=== PATIENT | female | born 1960 | race Caucasian/White ===

== ENCOUNTER 2018-02-07 22:00 | Emergency (ER) | payer OTHER ==
[~2018-02-07] VITALS: Ht 172.7 cm; Wt 104.8 kg
[2018-02-07 22:00] VITALS: TEMP 37.1; Ht 172.7 cm; Wt 104.8 kg
[~2018-02-07 22:00] MED LIST: CEPH500C2 PO; IBUP-1428 PO; OXYC-737 PO; [UNRECOGNIZED DRUG - REMARK] PO
[2018-02-07] MEDS ORDERED: KETOROLAC TROMETHAMINE 30 MG/ML VIAL IV STA (22:26)
[2018-02-07] MEDS ORDERED: DEXAMETHASONE **PF** INJ 10 MG/ML VIAL IV ONE (22:30)
[2018-02-07] MEDS ORDERED: ACETAMINOPHEN IV 100 ML IV ONE (22:30)
[2018-02-07 23:42] VITALS: BP 154/69; PULSE 66; O2SAT 95
[2018-02-07] MEDS ORDERED: PRED20TA2 PO (23:42)
[2018-02-07] MEDS ORDERED: EMPTY 8 DRAM VIAL ONE (23:44)
--- NOTE | 2018-02-08 02:17 | EMERGENCY ROOM VISIT NOTE ---
History First contact with patient: 22:10 Chief Complaint: BACK PAIN Stated Complaint: BACK PAIN, HIP PAIN History of Present Illness The patient is a 57 year old female who presents to the Emergency Room with complaints of low back pain worsening over the past 1 day. The patient does not have injury or trauma to explain her symptoms. She was seen in the emergency department earlier this week for right hip pain, where she was provided pain medication after x-rays were negative. The patient followed with her primary care physician yesterday who evidently did a steroid injection into her trochanteric bursa. The patient states that her hip pain is significantly improved after the injection. She began to develop back pain throughout the course of today. The patient states that she typically walks 2-3 miles a day for work, and was also working her garden today. This seems to have exacerbated her symptoms. She is currently on prescription Advil, Tylenol, and Flexeril for her symptoms. She does not like to take opioids because they make her feel "funny ". The patient has been able to use the bathroom as normal. No fevers or chills. She rates her discomfort a 7/10. Review of Systems More than 10 systems were reviewed and otherwise negative with the exception of history of present illness. Past Medical/Surgical History Surgical Problems: (1) H/O: hysterectomy Family History Cancer Social History Smoking Status: Current Every Day Smoker Alcohol Use: occasionally Marital Status: Housing Status: lives with significant other Occupation Status: employed Current/Historical Medications Scheduled Cephalexin Monohydrate (Keflex), Unknown Dose PO DIRECTED Prednisone (Prednisone Tab), 0 PO DAILY [Unknown Steroid], Unknown Dose PO DAILY Scheduled PRN Ibuprofen (Motrin), 800 MG PO Q8H PRN for Pain Oxycodone Immediate Rel Tab (Roxicodone Ir), 5 MG PO Q6H PRN for Pain Physical Exam Vital Signs Date Time Temp Pulse Resp B/P (MAP) Pulse Ox O2 Delivery O2 Flow Rate FiO2 02/07/18 23:42 66 16 154/69 95 Room Air 02/07/18 23:05 65 16 154/69 97 Room Air 02/07/18 22:00 37.1 66 20 170/71 96 Room Air Physical Exam VITALS: Vitals are noted on the nurse's note and reviewed by myself. Vital signs stable. GENERAL: Well-developed, well-nourished, white female, who is in no acute distress and resting comfortably. Patient is cooperative with the examination. HEART: Regular rate and rhythm without murmurs gallops or rubs. LUNGS: Clear to auscultation bilaterally without wheezes, rales or rhonchi. No retractions or accessory muscle use. ABDOMEN: Positive normal bowel sounds x 4. Soft, nontender, without masses or organomegaly. No guarding or rebound tenderness. BACK: Mild tenderness appreciated along the lower lumbar spine in the L3-L5 distribution as well as the right SI joint. Negative straight leg raise. No saddle paresthesias. MUSCULOSKELETAL: No muscle atrophy, erythema, or edema noted. Full range of motion in all extremities. No tenderness to palpation. Normal gait. Strength 5/5 throughout. NEURO: Patient was alert and oriented to person place and time. CN II through XII grossly intact. No focal neurological deficits. Medical Decision & Procedures Medications Administered Medications (Trade) Dose Ordered Sig/Amado Route Start Time Stop Time Status Last Admin Dose Admin Dexamethasone Sodium Phosphate (Dexamethasone Inj Pf) 10 mg NOW ONCE IV 02/07/18 22:30 02/07/18 22:31 DC 02/07/18 22:31 10 MG Ketorolac Tromethamine (Toradol Inj) 30 mg NOW STAT IV 02/07/18 22:26 02/07/18 22:27 DC 02/07/18 22:31 30 MG Acetaminophen 100 ml @ 400 mls/hr NOW ONCE IV 02/07/18 22:30 02/07/18 22:44 DC 02/07/18 22:34 400 MLS/HR Prednisone (PredniSONE TAB) 60 mg NOW STAT PO 02/07/18 23:40 02/07/18 23:42 DC 02/07/18 23:45 60 MG ED Course Physical exam and history were performed. Nursing notes, EMR, and Medication List were personally reviewed. Patient appears to have low back pain worsening over the past day. She has been having difficulty with her right hip this week, but evidently this is improving. The patient does arrived to the facility via ambulance. IV access was established the patient was medicated with IV Toradol, IV Decadron, and IV Tylenol as she evidently does not do well with opioids. X-rays were obtained and reviewed by myself showing no significant acute process with official radiology read pending at the time of this dictation. The patient was reevaluated multiple times throughout the course of her stay. The patient reports almost complete resolution of her discomfort after IV therapy. I had a lengthy discussion with the patient regarding options of care. Based on her current regimen I feel that she would do well with a tapering dose of prednisone. The patient is concerned she will not be able to make it to her pharmacy tomorrow and I did give her a dose for tomorrow from here. She will be given a prescription for the remaining course of steroid. She is to continue the [id number] analgesics as well as her muscle relaxer. She is to avoid unnecessary physical activity and follow-up with her primary care physician this week for further care management. The chart was completed utilizing [employer] Speech Voice Recognition Software. Grammatical errors, random word insertions, pronoun errors, and incomplete sentences are an occasional consequence of this system due to software limitations, ambient noise, and hardware issues. Any formal questions or concerns about the content, text, or information contained within the body of this dictation should be directly addressed to the provider for clarification. . Medical Decision Differential diagnosis: Etiologies such as musculoskeletal, disc herniation, fracture, aortic disease, metastatic disease, cord compression, discitis, infection, renal colic, gastrointestinal, acute exacerbation of chronic back pain, sciatica, cauda equina, as well as others were entertained. Impression Primary Impression: Low back pain Departure Information Dispostion Home / Self-Care Condition GOOD Prescriptions Prednisone (Prednisone Tab) 20 Mg Tab 0 PO DAILY, #18 TAB 3 DAILY FOR 3 DAYS, THEN 2 DAILY FOR 3 DAYS, THEN 1 DAILY FOR 3 DAYS. Prov: Norris De La Fuente PA-C 02/07/18 Forms HOME CARE DOCUMENTATION FORM, IMPORTANT VISIT INFORMATION Patient Instructions My [facility] Additional Instructions You were seen and evaluated today on an emergency basis only. This is not a substitute for, or an effort to provide, complete comprehensive medical care. It is not possible to recognize and treat all injuries or illnesses in a single emergency department visit. For this reason it is recommended that you followup with your primary care physician next week with any ongoing or persisting symptoms. Take your medications as previously prescribed. Take prednisone as prescribed You are welcome to return to the emergency department anytime with new, worsening, or concerning symptoms.
--- NOTE | 2018-02-08 05:42 | DIAGNOSTIC IMAGING REPORT ---
L-SPINE MIN 4 VIEWS ROUTINE HISTORY: Pain Low back pain COMPARISON: None. FINDINGS: There is no fracture. No subluxation. Mild degenerative disc changes throughout. Increased fecal load throughout the abdomen. IMPRESSION: Mild degenerative change lumbar spine. No acute process. Increased colonic fecal load. The above report was generated using voice recognition software. It may contain grammatical, syntax or spelling errors. Electronically signed by: Mauri Larios M.D. 02/08/2018 5:41 AM Dictated Date/Time: 02/08/2018 5:40 AM
== END 2018-02-07 23:50 | disposition home or self-care (01) ==
LOC: EDBD 22:00 → C.EDB 22:01
DX: M54.5 Low back pain (principal); F17.200 Nicotine dependence, unspecified, uncomplicated

== ENCOUNTER 2018-02-10 02:59 | Emergency (ER) | payer OTHER ==
[~2018-02-10] VITALS: Ht 172.7 cm; Wt 107.8 kg
[~2018-02-10 02:59] MED LIST changes: +PRED20TA2 PO
[2018-02-10 03:14] VITALS: TEMP 36.6; Ht 172.7 cm; Wt 107.8 kg
[2018-02-10] MEDS ORDERED: DiphenhydrAMINE HCL 50 MG/ML VIAL IV STA (03:19)
[2018-02-10] MEDS ORDERED: KETOROLAC TROMETHAMINE 30 MG/ML VIAL IV STA (03:19)
[2018-02-10 03:38] LABS: BASO % 0.1 %; BASO ABS # 0.01 K/uL (0-0.2); EOS % 0.3 %; EOS ABS # 0.04 K/uL (0-0.5); HEMATOCRIT 41.5 % (37-47); HEMOGLOBIN 14.2 g/dL (12.0-16.0); IG# 0.03 K/uL (0.00-0.02); LYMPH ABS # 2.74 K/uL (1.2-3.4); MEAN CELL VOLUME 91.4 fL (80-100); MEAN CORPUSCULAR HEMOGLOBIN 31.3 pg (25-34); MEAN CORPUSCULAR HGB CONC 34.2 g/dl (32-36); MEAN PLATELET VOLUME 10.3 fL (7.4-10.4); MONO % 7.6 %; NEUT % 72.8 %; NEUT ABS # 10.52 K/uL (1.4-6.5); PLATELET COUNT 312 K/uL (130-400); RED CELL DISTRIBUTION WIDTH CV 14.4 % (11.5-14.5); RED CELL DISTRIBUTION WIDTH SD 48.2 fL (36.4-46.3); WHITE BLOOD COUNT 14.44 K/uL (4.8-10.8)
[2018-02-10] MEDS ORDERED: LORAZEPAM 2 MG/ML 1 ML VIAL IV STA (03:49)
[2018-02-10] MEDS ORDERED: MoRPHine SULFATE 4 MG/ML 1 ML CARP\\VIAL IV STA ×2 (03:50→06:26)
[2018-02-10] MEDS ORDERED: ONDANSETRON INJ 2 MG/ML 2 ML VIAL IV STA (03:50)
[2018-02-10 04:03] LABS: ALKALINE PHOSPHATASE 69 U/L (45-117); ALT/SGPT 37 U/L (12-78); AST/SGOT 14 U/L (15-37); BLOOD UREA NITROGEN 27 mg/dl (7-18); CALCIUM 8.8 mg/dl (8.5-10.1); CARBON DIOXIDE 24 mmol/L (21-32); CREATININE 1.08 mg/dl (0.60-1.20); GLUCOSE 100 mg/dl (70-99); POTASSIUM 3.8 mmol/L (3.5-5.1); SODIUM 138 mmol/L (136-145); TOTAL PROTEIN 7.9 gm/dl (6.4-8.2)
[2018-02-10 04:04] VITALS: O2SAT 98
[2018-02-10] MEDS ORDERED: OPTIRAY 320 IV PRN (05:45)
--- NOTE | 2018-02-10 06:28 | EMERGENCY ROOM VISIT NOTE ---
History First contact with patient: 03:14 Chief Complaint: HIP PAIN Stated Complaint: BACK PAIN History of Present Illness The patient is a 57 year old female who presents to the Emergency Room with complaints of severe right lower back pain that radiates to her groin for the past few weeks who was seen here 3 times and in the family care doctor twice now. Patient is currently on a Medrol Dosepak. Patient describes the pain as severe, 10 out of 10. No injury to the area. Nothing makes it better or worse. It radiates to her groin. Patient also comments of productive cough and congestion for the past several days and is concerned she has pneumonia. Patient does smoke. Patient denies chest pain, dyspnea, abdominal pain, neck stiffness, headache, sore throat, earache, loss of bowel or bladder control, saddle anesthesia, fever, chills, leg weakness, IV drug abuse. Review of Systems An 10 system review of systems was completed with positives and pertinent negatives listed in the HPI. Past Medical/Surgical History Surgical Problems: (1) H/O: hysterectomy Family History Cancer Social History Smoking Status: Current Every Day Smoker Alcohol Use: occasionally Marital Status: Housing Status: lives with significant other Occupation Status: employed Current/Historical Medications Scheduled Cephalexin Monohydrate (Keflex), Unknown Dose PO DIRECTED Prednisone (Prednisone Tab), 0 PO DAILY [Unknown Steroid], Unknown Dose PO DAILY Scheduled PRN Ibuprofen (Motrin), 800 MG PO Q8H PRN for Pain Oxycodone Immediate Rel Tab (Roxicodone Ir), 5 MG PO Q6H PRN for Pain Physical Exam Vital Signs Date Time Temp Pulse Resp B/P (MAP) Pulse Ox O2 Delivery O2 Flow Rate FiO2 02/10/18 06:10 62 18 165/65 94 Room Air 02/10/18 05:26 56 18 162/66 95 Room Air 02/10/18 04:04 98 Nasal Cannula 3.0 02/10/18 04:02 50 16 198/114 96 Nasal Cannula 2.0 02/10/18 03:52 59 02/10/18 03:44 99 Room Air 02/10/18 03:43 54 18 185/91 99 Room Air 02/10/18 03:42 99 Room Air 02/10/18 03:14 36.6 52 20 190/62 95 Room Air Physical Exam VITALS: Vitals are noted on the nurse's note and reviewed by myself. Vital signs hypertensive GENERAL: Pleasant female who appears in pain, in no acute distress, nondiaphoretic, well-developed well-nourished. SKIN: The skin was without rashes, erythema, edema, or bruising. There is no tenting of the skin. Capillary reflex less than 2 seconds. HEAD: Normocephalic atraumatic. EARS: External auditory canals clear, tympanic membranes pearly huggins without erythema or effusion bilaterally. EYES: Pupils equal round and reactive to light and accommodation. Conjunctivae without injection, sclerae without icterus. Extraocular movements intact. NOSE: Patent, turbinates without inflammation or discharge. No sinus tenderness. MOUTH: Mucous membranes moist. Pharynx without erythema or exudate. Uvula midline. Airway patent. Tongue does not deviate. NECK: Supple without nuchal rigidity. No lymphadenopathy. No thyromegaly. Cervical spine is nontender. No JVD. HEART: Regular rate and rhythm LUNGS: Clear to auscultation bilaterally without wheezes, rales or rhonchi. No retractions or accessory muscle use. ABDOMEN: Positive bowel sounds x 4. Normal tympanic percussion. Soft, nontender, without masses or organomegaly. Quintanilla sign negative. No guarding or rebound tenderness. No CVA tenderness MUSCULOSKELETAL: No muscle atrophy, erythema, or edema noted. No thoracic or lumbar tenderness on exam. Right lower lumbar tender to palpation. Positive straight leg raise on the right. Patellar reflexes +2 equal and present bilaterally. Patient is able to ambulate. NEURO: Patient was alert and oriented to person place and time. Normal sensation to light and sharp touch. No focal neurological deficits. Medical Decision & Procedures Laboratory Results 02/10/18 03:32 Red Blood Count 4.54, Mean Corpuscular Volume 91.4, Mean Corpuscular Hemoglobin 31.3, Mean Corpuscular Hemoglobin Concent 34.2, Mean Platelet Volume 10.3, Neutrophils (%) (Auto) 72.8, Lymphocytes (%) (Auto) 19.0, Monocytes (%) (Auto) 7.6, Eosinophils (%) (Auto) 0.3, Basophils (%) (Auto) 0.1, Neutrophils # (Auto) 10.52, Lymphocytes # (Auto) 2.74, Monocytes # (Auto) 1.10, Eosinophils # (Auto) 0.04, Basophils # (Auto) 0.01 02/10/18 03:32 Test 02/10/18 03:32 White Blood Count 14.44 K/uL (4.8-10.8) Red Blood Count 4.54 M/uL (4.2-5.4) Hemoglobin 14.2 g/dL (12.0-16.0) Hematocrit 41.5 % (37-47) Mean Corpuscular Volume 91.4 fL (80-100) Mean Corpuscular Hemoglobin 31.3 pg (25-34) Mean Corpuscular Hemoglobin Concent 34.2 g/dl (32-36) Platelet Count 312 K/uL (130-400) Mean Platelet Volume 10.3 fL (7.4-10.4) Neutrophils (%) (Auto) 72.8 % Lymphocytes (%) (Auto) 19.0 % Monocytes (%) (Auto) 7.6 % Eosinophils (%) (Auto) 0.3 % Basophils (%) (Auto) 0.1 % Neutrophils # (Auto) 10.52 K/uL (1.4-6.5) Lymphocytes # (Auto) 2.74 K/uL (1.2-3.4) Monocytes # (Auto) 1.10 K/uL (0.11-0.59) Eosinophils # (Auto) 0.04 K/uL (0-0.5) Basophils # (Auto) 0.01 K/uL (0-0.2) RDW Standard Deviation 48.2 fL (36.4-46.3) RDW Coefficient of Variation 14.4 % (11.5-14.5) Immature Granulocyte % (Auto) 0.2 % Immature Granulocyte # (Auto) 0.03 K/uL (0.00-0.02) Anion Gap 9.0 mmol/L (3-11) Est Creatinine Clear Calc Drug Dose 72.1 ml/min Estimated GFR () 65.1 Estimated GFR (Non- 56.1 BUN/Creatinine Ratio 25.0 (10-20) Calcium Level 8.8 mg/dl (8.5-10.1) Total Bilirubin 0.3 mg/dl (0.2-1) Direct Bilirubin < 0.1 mg/dl (0-0.2) Aspartate Amino Transf (AST/SGOT) 14 U/L (15-37) Alanine Aminotransferase (ALT/SGPT) 37 U/L (12-78) Alkaline Phosphatase 69 U/L (45-117) Total Protein 7.9 gm/dl (6.4-8.2) Albumin 4.0 gm/dl (3.4-5.0) Medications Administered Medications (Trade) Dose Ordered Sig/Amado Route Start Time Stop Time Status Last Admin Dose Admin Ketorolac Tromethamine (Toradol Inj) 10 mg NOW STAT IV 02/10/18 03:19 02/10/18 03:22 DC 02/10/18 03:37 10 MG Diphenhydramine HCl (Benadryl Inj) 25 mg NOW STAT IV 02/10/18 03:19 02/10/18 03:22 DC 02/10/18 03:36 25 MG Lorazepam (Ativan Inj) 1 mg NOW STAT IV 02/10/18 03:49 02/10/18 03:50 DC 02/10/18 03:55 1 MG Morphine Sulfate (MoRPHine SULFATE INJ) 4 mg NOW STAT IV 02/10/18 03:50 02/10/18 03:51 DC 02/10/18 03:55 4 MG Ondansetron HCl (Zofran Inj) 4 mg NOW STAT IV 02/10/18 03:50 02/10/18 03:51 DC 02/10/18 03:55 4 MG ED Course Prior records/ancillary studies reviewed. Triage Nursing notes reviewed. Additional history obtained from family The patient's history was concerning for back pain with cold symptoms. Differential diagnosis: Etiologies such as bronchitis, pneumonia, musculoskeletal, disc herniation, fracture, aortic disease, metastatic disease, cord compression, discitis, infection, renal colic, gastrointestinal, acute exacerbation of chronic back pain, sciatica, cauda equina, as well as others were entertained. Physical findings: As above. No focal neurologic findings noted. ER treatment provided: Toradol, Benadryl On reassessment the patient felt better. Diagnostics interpreted by me: The labs revealed leukocytosis most likely stress reaction from all the steroids the patient's been taking No worrisome electrode and vomiting Imaging studies: Chest x-ray with no acute consolidation, pneumothorax or free of my interpretation MRI L SPINE : Vertebral body and disc space heights are preserved. No suspicious marrow lesions. No disc herniation. No spinal canal stenosis. The distal cord signal is unremarkable. No suspicious soft tissue findings. Radiologist: Ori Pinzon MD CT ABDOMEN & PELVIS With Contrast: Liver, gallbladder, spleen, pancreas, and adrenal glands are unremarkable. No hydronephrosis or perinephric stranding. No obstructive or inflammatory changes of the bowel. The appendix is not visualized. Urinary bladder is unremarkable. Uterus is surgically absent. No acute osseous findings. Radiologist: Mirian Fay M.D. This appears to be consistent with right flank pain with unclear etiology. Most likely is muscle skeletal. Patient had no acute findings on MRI imaging. CT was ordered for rule out infection or stone. This is unremarkable. Patient was advised to follow-up family care doctor and to take medications as directed. She is advised to stretch her back out and try heating pad to the area. She is advised to return to the ER meaty for severe pain, inability to walk, fevers, worsening signs or symptoms or as needed. Patient did not have acute abdomen on exam. Repeat abdominal exam was benign. She was neurovascularly and neurologically intact. This is the patient's third ER visit for this ongoing back pain. Further imaging was ordered. By the evaluation outlined above emergent etiologies such as fracture, aortic disease, metastatic disease, infection, renal colic, gastrointestinal, cord compression, cauda equina, as well as others were deemed relatively unlikely. The pt informed about the findings as listed above. All questions were answered and pleased with the treatment. Return instructions were outlined and the patient was discharged in stable condition. Outpatient prescription management: Oxy IR 5mg 1-2 po Q4 hrs prn Referral: The patient was referred back to primary care physician for follow-up in 2 to 3 days for a recheck of the current condition. Case reviewed with my attending The chart was completed utilizing [employer] voice recognition software. Grammatical errors, random word insertions, pronoun errors, and incomplete sentences are an occassional consequence of this system due to software limitations, ambient noise, and hardware issues. Any formal questions or concerns about the content, text, or information contained within the body of this dictation should be directly addressed to the physician assistant professor of life sciences for clarification. Medical Decision As above [place] Drug Monitoring Program Search Results: patient reviewed within database, no issues identified Medication Reconcilliation Current Medication List: was personally reviewed by me Blood Pressure Screening Patient's blood pressure: Elevated blood pressure Blood pressure disposition: Referred to PCP Impression Primary Impression: Bronchitis Additional Impression: Right flank pain Departure Information Dispostion Home / Self-Care Condition GOOD Referrals Devan Chino D.O. (PCP) Patient Instructions My [facility] Additional Instructions DO NOT drive, drink alcohol, operate machinery, or perform dangerous activities today. You were given medications in the ER that can affect your ability to safely function or operate a vehicle. Oxycodone (OxyIR) 5mg: Take 1-2 pills every four hours for breakthrough pain. Avoid alcohol, operating machinery or dangerous equipment, working on ladders or roofs, DRIVING, or situations where being under the influence may be dangerous. It is recommended to use an [id number] stool softener such as Colace, 100mg twice daily while taking this medication to avoid constipation. Recommend yoga and/or Pilates for back pain to help strengthen uo your core. Recommend physical therapy to help strengthen up your core. Recommend a healthy weight. Ibuprofen(Motrin, Advil) may be used for fever or pain. Use 600mg every six hours as needed. Take with food. Avoid using more than 2400mg in a 24 hour period. Do not use 2400mg per day for more than three consecutive days without physician direction. Prolonged inappropriate use can lead to stomach upset or ulcers. This medication can be taken if you need to drive, work, or perform activities which may be dangerous when taking narcotic pain medication. (AND/OR) Acetaminophen(Tylenol) may be used for fever or pain. Use 1000mg every six hours as needed. Avoid using more than 3000mg in a 24 hour period. This medication can be taken if you need to drive, work, or perform activities which may be dangerous when taking narcotic pain medication. Rest and avoid heavy lifting until your symptoms resolve and then gradually return to full activity. A good rule of thumb is if it hurts your back to perform a certain activity, then it should be avoided until you are healthy again. A heating pad, warm compresses, or a hot shower may help with tight muscles and can be done several times a day as needed. Continue current medications. Return to the ER immediately for any numbness, tingling, severe pain, loss of control of your bowels or bladder, inability to walk, or as needed. Follow up with your primary care physician/orthopedics spine within 3-5 days for a recheck of your current condition. Problem Qualifiers
[2018-02-10] MEDS ORDERED: OXYCODONE IR HOME PACK PO ONE (06:30)
[2018-02-10] MEDS ORDERED: ALBUTEROL HFA 8 GM INHALER INH STA (06:31)
--- NOTE | 2018-02-10 06:42 | DIAGNOSTIC IMAGING REPORT ---
CT ABD/PELVIS IV CONTRAST ONLY CLINICAL HISTORY: Right-sided abdominal and flank pain COMPARISON STUDY: None. TECHNIQUE: Following the IV administration of 94 mL of Optiray-320, CT scan of the abdomen and pelvis was performed from the lung bases to the proximal femurs. Images are reviewed in the axial, sagittal, and coronal planes. IV contrast was administered without complication. A dose lowering technique was utilized adhering to the principles of ALARA. CT DOSE: 1106.79 mGy.cm FINDINGS: Lower chest: There is respiratory motion artifact. There is bilateral interstitial prominence. There are no significant pleural effusions. Liver: There is mild inhomogeneous hepatic enhancement. No focal masses are visualized. There is minimal periportal edema. The liver is mildly enlarged. Gallbladder: Unremarkable. Spleen: Normal in size and attenuation. Pancreas: Unremarkable. Adrenal glands: Unremarkable. Kidneys: There is symmetric renal cortical enhancement. The kidneys are normal in size without hydronephrosis. Bowel: There are no transition zones indicate bowel obstruction. There is no acute diverticulitis. There are no findings to indicate acute appendicitis. Peritoneum: There is no intraperitoneal free air or abdominal ascites. Vasculature: The abdominal aorta is normal in course and caliber. Adenopathy: None. Pelvic viscera: The uterus is surgically absent. Skeletal structures: No destructive osseous lesions are seen. IMPRESSION: 1. No evidence of bowel obstruction. No evidence of free air 2. Nonvisualization the appendix. No evidence of acute appendicitis 3. No evidence of diverticulitis 4. Surgically absent uterus 5. Mild hepatomegaly. Minor heterogeneous hepatic enhancement without evidence of focal mass Electronically signed by: Daniel Eden M.D. 02/10/2018 6:41 AM Dictated Date/Time: 02/10/2018 6:37 AM
--- NOTE | 2018-02-10 06:44 | DIAGNOSTIC IMAGING REPORT ---
CHEST ONE VIEW PORTABLE CLINICAL HISTORY: cough dyspnea COMPARISON STUDY: No previous studies for comparison. FINDINGS: The bones soft tissues and hemidiaphragms are normal. The cardiomediastinal silhouette is normal. The lungs are clear. The pulmonary vasculature is normal. IMPRESSION: Negative chest. The above report was generated using voice recognition software. It may contain grammatical, syntax or spelling errors. Electronically signed by: Mauri Larios M.D. 02/10/2018 6:43 AM Dictated Date/Time: 02/10/2018 6:43 AM
[2018-02-10 06:49] VITALS: BP 158/66; PULSE 56; O2SAT 98
--- NOTE | 2018-02-10 07:28 | DIAGNOSTIC IMAGING REPORT ---
MRI OF THE LUMBAR SPINE WITHOUT IV CONTRAST CLINICAL HISTORY: Low back pain. COMPARISON STUDY: Abdominal CT dated 02/10/2018. Radiographs of the lumbar spine dated 02/07/2018. TECHNIQUE: MRI of the lumbar spine is performed utilizing various T1 and T2-weighted sequences in the axial and sagittal planes. IV contrast was not administered for this examination. The examination is significantly compromised by motion artifact. FINDINGS: Lumbar spine: Vertebral body height and alignment are maintained throughout the lumbar spine. Normal marrow signal intensity is preserved throughout the visualized bony structures. The transverse and spinous processes are intact as imaged. There is no evidence of spondylolysis. No destructive bony lesion is seen. Intervertebral discs: Degenerative disc desiccation is seen throughout the lumbar spine. Mild loss of height is noted at L4-L5. The disc spaces are otherwise maintained. Spinal cord: The partially imaged spinal cord is normal in morphology and signal intensity. The conus medullaris terminates at the level of L1. The nerve roots of the cauda equina are normal as visualized. L1-L2: Unremarkable. L2-L3: Unremarkable. L3-L4: The central canal appears clear. Facet arthropathy is of no consequence. L4-L5: There is minimal posterior disc bulge. The central canal appears patent. Facet arthropathy causes mild left-sided neural foraminal stenosis. L5-S1: The central canal is patent. Facet arthropathy causes mild bilateral neural foraminal stenosis. Sacrum: The visualized sacrum is normal in morphology and signal intensity. Soft tissues: The paraspinous soft tissues are normal in appearance. The partially imaged retroperitoneal structures are grossly unremarkable but incompletely evaluated. IMPRESSION: 1. Significantly motion compromised examination. 2. There is no evidence of disc herniation or central canal stenosis. 3. Mild spondylotic change as above. Dictated: 02/10/2018 7:11 AM Transcribed: 02/10/2018 7:28 AM Nadine Electronically signed by: French Edwards M.D. 02/10/2018 7:31 AM Dictated Date/Time: 02/10/2018 7:11 AM
[2018-02-11] MEDS ORDERED: BACL10TA PO (21:29)
[2018-02-11] MEDS ORDERED: ACET-1256 PO (21:29)
[2018-02-11] MEDS ORDERED: DOCU-94 PO (21:29)
[2018-02-11] MEDS ORDERED: VNTHFA/IN INH (21:29)
[2018-02-11] MEDS ORDERED: OXYC-737 PO (21:29)
[2018-02-11] MEDS ORDERED: KETO10TA PO (21:29)
[2018-02-11] MEDS ORDERED: HYDR-3983 PO (23:14)
== END 2018-02-10 06:51 | disposition home or self-care (01) ==
LOC: EDBD 02:59 → C.EDA 03:00
DX: J40 Bronchitis, not specified as acute or chronic (principal); R10.9 Unspecified abdominal pain; R03.0 Elevated blood-pressure reading, without diagnosis of hypertension; F17.200 Nicotine dependence, unspecified, uncomplicated; Z79.52 Long term (current) use of systemic steroids

== ENCOUNTER 2018-02-11 19:36 | Emergency (ER) | payer OTHER ==
[~2018-02-11] VITALS: Ht 154.9 cm; Wt 105.0 kg
[2018-02-11 19:38] VITALS: TEMP 36.5; Ht 154.9 cm; Wt 105.0 kg
[2018-02-11] MEDS ORDERED: HYDROmorphone INJ 1 MG/ML SYR IV STA (20:15)
[2018-02-11] MEDS ORDERED: ONDANSETRON INJ 2 MG/ML 2 ML VIAL IV STA (20:15)
[2018-02-11] MEDS ORDERED: SOAP SUDS ENEMA PR STA (20:15)
[2018-02-11] MEDS ORDERED: LORAZEPAM 1 MG TAB SL STA (20:15)
--- NOTE | 2018-02-11 20:30 | EMERGENCY ROOM VISIT NOTE ---
History Report prepared by Natalee: Mona Zhong Under the Supervision of: Dr. Alisson Villanueva M.D. 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 Pt has been seen twice prior for back pain. She has been taking the steroids and baclofen previously prescribed, as well as toradol. Pt has not taken the oxy. Pt states she believes she had an allergic reaction to the oxy as her throat was sore the night she took it, she then woke up with a "full blown sinus infection." She has been seen by her PCP and pain management in addition to her ED visits. 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 She denies any SOB, family history of blood clots, trauma or recent travel. 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 A total of 10 systems reviewed and were otherwise negative. Past Medical & Surgical Surgical Problems: (1) H/O: hysterectomy Family History Cancer Social History Smoking Status: Never Smoker Alcohol Use: occasionally Marital Status: Housing Status: lives with significant other Occupation Status: employed Current/Historical Medications Scheduled Acetaminophen (Tylenol), 1-2 TAB PO Q6 Albuterol Hfa (Ventolin Hfa), 2-4 PUFFS INH Q6H Baclofen (Lioresal), 10 MG PO TID Docusate Sodium (Colace), 1 CAP PO BID Prednisone (Prednisone Tab), 0 PO DAILY Scheduled PRN Hydrocodone/Acetaminophen 7.5MG/325MG ([place] 7.5MG/325MG), 1 TAB PO Q6 PRN for Pain Ketorolac (Toradol), 10 MG PO TID PRN for Pain Oxycodone Immediate Rel Tab (Roxicodone Ir), 5 MG PO Q6H PRN for Pain Allergies Coded Allergies: Chlorhexidine (Verified Allergy, Intermediate, RASH, 02/11/18) RASH ONLY DEVELOPED IN CREASE OF ABDOMINAL FOLD ABOVE PERINEUM. NO RASH ON ARMS/HANDS Physical Exam Vital Signs Date Time Temp Pulse Resp B/P (MAP) Pulse Ox O2 Delivery O2 Flow Rate FiO2 02/11/18 23:37 60 18 180/82 95 02/11/18 22:55 53 18 187/88 95 Room Air 02/11/18 20:59 51 20 187/83 97 Room Air 02/11/18 20:59 54 02/11/18 19:38 36.5 64 18 193/115 95 Room Air Physical Exam Vital signs reviewed. Noted to be remarkably hypertensive. General: Anxious-appearing obese female, in no acute distress. Hyperventilating. HEENT: No scleral icterus, PERRLA, neck supple. Atraumatic. Cardiovascular: Regular rate and rhythm, no extra sounds. Pulmonary: Clear to auscultation bilaterally, normal work of breathing. Abdomen: Soft, nontender, nondistended, positive bowel sounds. Musculoskeletal: Atraumatic, no peripheral edema. Tender to palpation along the proximal lumbar spine. No step off, deformity or swelling. Neurologic: Patient awake alert and oriented x 3, full strength in all 4 extremities. Cranial nerves 2 through 12 grossly intact. Ambulatory without difficulty. Skin: Warm, dry, no rash Medical Decision & Procedures ER Provider Diagnostic Interpretation: Radiology results as stated below per my review and radiologist interpretation: CT ANGIOGRAM OF THE CHEST CLINICAL HISTORY: Atypical chest pain COMPARISON STUDY: Chest x-ray dated 02/10/2018 TECHNIQUE: Following the IV administration of 99 mL of Optiray-320, CT angiogram of the thorax was performed from the thoracic inlet to the lung bases utilizing the pulmonary embolus protocol. Images are reviewed in the axial, sagittal, and coronal planes. IV contrast was administered without complication. MIP imaging was performed. A dose lowering technique was utilized adhering to the principles of ALARA. CT DOSE: 711.70 mGy.cm FINDINGS: No pathologically enlarged axillary mediastinal or hilar lymph nodes were visualized. There was no evidence of thoracic aortic dilatation. There were no pulmonary artery filling defects to indicate acute pulmonary embolism. No pleural effusions are visualized. There was no evidence of focal pulmonary consolidation. IMPRESSION: 1. No evidence of acute pulmonary embolism 2. No evidence of focal pulmonary consolidation 3. No evidence of pathologic adenopathy Electronically signed by: Daniel Eden M.D. 02/11/2018 10:16 PM Laboratory Results 02/11/18 20:30 Red Blood Count 4.72, Mean Corpuscular Volume 90.0, Mean Corpuscular Hemoglobin 30.7, Mean Corpuscular Hemoglobin Concent 34.1, Mean Platelet Volume 10.6, Neutrophils (%) (Auto) 73.7, Lymphocytes (%) (Auto) 15.6, Monocytes (%) (Auto) 9.8, Eosinophils (%) (Auto) 0.4, Basophils (%) (Auto) 0.1, Neutrophils # (Auto) 9.86, Lymphocytes # (Auto) 2.09, Monocytes # (Auto) 1.31, Eosinophils # (Auto) 0.05, Basophils # (Auto) 0.01 02/11/18 20:30 Test 02/11/18 20:30 White Blood Count 13.37 K/uL (4.8-10.8) Red Blood Count 4.72 M/uL (4.2-5.4) Hemoglobin 14.5 g/dL (12.0-16.0) Hematocrit 42.5 % (37-47) Mean Corpuscular Volume 90.0 fL (80-100) Mean Corpuscular Hemoglobin 30.7 pg (25-34) Mean Corpuscular Hemoglobin Concent 34.1 g/dl (32-36) Platelet Count 294 K/uL (130-400) Mean Platelet Volume 10.6 fL (7.4-10.4) Neutrophils (%) (Auto) 73.7 % Lymphocytes (%) (Auto) 15.6 % Monocytes (%) (Auto) 9.8 % Eosinophils (%) (Auto) 0.4 % Basophils (%) (Auto) 0.1 % Neutrophils # (Auto) 9.86 K/uL (1.4-6.5) Lymphocytes # (Auto) 2.09 K/uL (1.2-3.4) Monocytes # (Auto) 1.31 K/uL (0.11-0.59) Eosinophils # (Auto) 0.05 K/uL (0-0.5) Basophils # (Auto) 0.01 K/uL (0-0.2) RDW Standard Deviation 46.8 fL (36.4-46.3) RDW Coefficient of Variation 14.3 % (11.5-14.5) Immature Granulocyte % (Auto) 0.4 % Immature Granulocyte # (Auto) 0.05 K/uL (0.00-0.02) D-Dimer 970 ug/L FEU (0-500) Anion Gap 8.0 mmol/L (3-11) Est Creatinine Clear Calc Drug Dose 68.2 ml/min Estimated GFR () 72.3 Estimated GFR (Non- 62.4 BUN/Creatinine Ratio 24.8 (10-20) Calcium Level 9.5 mg/dl (8.5-10.1) Total Bilirubin 0.5 mg/dl (0.2-1) Direct Bilirubin 0.1 mg/dl (0-0.2) Aspartate Amino Transf (AST/SGOT) 34 U/L (15-37) Alanine Aminotransferase (ALT/SGPT) 70 U/L (12-78) Alkaline Phosphatase 65 U/L (45-117) Total Protein 7.8 gm/dl (6.4-8.2) Albumin 4.2 gm/dl (3.4-5.0) Laboratory results per my review. Medications Administered Medications (Trade) Dose Ordered Sig/Amado Route Start Time Stop Time Status Last Admin Dose Admin Lorazepam (Ativan Tab) 1 mg NOW STAT SL 02/11/18 20:15 02/11/18 20:21 DC 02/11/18 20:54 1 MG Hydromorphone HCl (Dilaudid Inj) 1 mg NOW STAT IV 02/11/18 20:15 02/11/18 20:21 DC 02/11/18 20:55 1 MG Ondansetron HCl (Zofran Inj) 4 mg NOW STAT IV 02/11/18 20:15 02/11/18 20:21 DC 02/11/18 20:54 4 MG Miscellaneous (Soap Suds Enema) 1 ea NOW STAT RI 02/11/18 20:15 02/11/18 20:21 DC 02/11/18 21:34 1 EA Sodium Chloride 1,000 ml @ 200 mls/hr Q5H STAT IV 02/11/18 21:27 02/12/18 00:30 DC 02/11/18 21:35 200 MLS/HR Acetaminophen/ Hydrocodone Bitart ([place] 7.5/325 Tab) 1 tab NOW STAT PO 02/11/18 23:15 02/11/18 23:16 DC 02/11/18 23:36 1 TAB ED Course 2012: Past medical records reviewed. The patient was evaluated in room A4. A complete history and physical examination was performed. 2014: Ordered Soap Suds Enema 1 ea RI, Zofran Inj 4 mg IV, Dilaudid Inj 1 mg IV , Lorazepam 1 mg SL 2126: Ordered Sodium Chloride 1000 ml @ 200 mls/hr IV 0: Upon reevaluation, the patient appeared to have improvement of her symptoms. I discussed findings with her. She verbalized agreement of the treatment plan. She was discharged home. Medical Decision Differential diagnosis: Etiologies such as musculoskeletal, disc herniation, fracture, aortic disease, metastatic disease, cord compression, discitis, infection, renal colic, gastrointestinal, acute exacerbation of chronic back pain, sciatica, cauda equina, as well as others were entertained. This pt was evaluated and appeared to be in no distress. IV access was obtained and lab work was drawn. Pt was given ativan 1 mg SL, dilaudid 1 mg IV and zofran 4 mg IV. Pt was observed on the campus monitor. Lab work reveals an elevated ddimer. CTA chest was performed and is negative for PE. She was given a soap suds enema for her constipation. On reevaluation, she was much more comfortable. Her records had been reviewed and the results of all imaging studies were discussed. I did offer CT of the head for OUQENDO sx, but she wanted to be d/c. I reviewed her meds rx recently. She was reassured that the reaction she attributed to oxy is not a true allergy. We will continue steroid taper, baclofen and switch to hydrocodone/APAP. PT was advised not to drive on these medications. She will f/u with PCP and return to the ED for worsening of symptoms or any medical concerns. Medication Reconcilliation Current Medication List: was personally reviewed by me Blood Pressure Screening Patient's blood pressure: Elevated blood pressure Blood pressure disposition: Elevated BP felt to be situational Impression Primary Impression: Acute back pain Additional Impression: Anxiety Scribe Attestation The scribe's documentation has been prepared under my direction and personally reviewed by me in its entirety. I confirm that the note above accurately reflects all work, treatment, procedures, and medical decision making performed by me. Departure Information Dispostion Home / Self-Care Prescriptions Hydrocodone/Acetaminophen 7.5MG/325MG ([place] 7.5MG/325MG) Tab 1 TAB PO Q6 Y for Pain, #14 TAB Prov: Alisson Villanueva M.D. 02/11/18 Referrals Devan Chino D.O. (PCP) Forms HOME CARE DOCUMENTATION FORM, IMPORTANT VISIT INFORMATION Patient Instructions My [facility] Additional Instructions Diagnosis: Acute back pain Please continue steroids as prescribed. Continue baclofen as prescribed. Do not drive after taking this medication. Discontinue use of Toradol, Tylenol and oxycodone. Hydrocodone/acetaminophen 1 tablet every 6 hours as needed for pain. Do not take Tylenol with this medication. Do not drive on this medication. Warm compresses and gentle stretching for relief of your discomfort. Continue with physical therapy as prescribed. Follow-up with your primary care physician within the next week for reevaluation. Return to the ED for worsening of symptoms or any medical concerns Problem Qualifiers
[2018-02-11 20:56] LABS: BASO % 0.1 %; BASO ABS # 0.01 K/uL (0-0.2); EOS % 0.4 %; EOS ABS # 0.05 K/uL (0-0.5); HEMATOCRIT 42.5 % (37-47); HEMOGLOBIN 14.5 g/dL (12.0-16.0); IG# 0.05 K/uL (0.00-0.02); LYMPH % 15.6 %; LYMPH ABS # 2.09 K/uL (1.2-3.4); MEAN CORPUSCULAR HEMOGLOBIN 30.7 pg (25-34); MEAN CORPUSCULAR HGB CONC 34.1 g/dl (32-36); MEAN PLATELET VOLUME 10.6 fL (7.4-10.4); MONO % 9.8 %; MONO ABS # 1.31 K/uL (0.11-0.59); NEUT % 73.7 %; NEUT ABS # 9.86 K/uL (1.4-6.5); PLATELET COUNT 294 K/uL (130-400); RED CELL DISTRIBUTION WIDTH CV 14.3 % (11.5-14.5); RED CELL DISTRIBUTION WIDTH SD 46.8 fL (36.4-46.3); WHITE BLOOD COUNT 13.37 K/uL (4.8-10.8)
[2018-02-11 21:08] LABS: ALBUMIN 4.2 gm/dl (3.4-5.0); CALCIUM 9.5 mg/dl (8.5-10.1); CREATININE 0.99 mg/dl (0.60-1.20); POTASSIUM 3.8 mmol/L (3.5-5.1); TOTAL PROTEIN 7.8 gm/dl (6.4-8.2)
[2018-02-11] MEDS ORDERED: SODIUM CHLORIDE 0.9% 1000ML 1,000 ML IV STA (21:27)
[2018-02-11] MEDS ORDERED: VNTHFA/IN INH (21:29)
[2018-02-11] MEDS ORDERED: ACET-1256 PO (21:29)
[2018-02-11] MEDS ORDERED: BACL10TA PO (21:29)
[2018-02-11] MEDS ORDERED: OXYC-737 PO (21:29)
[2018-02-11] MEDS ORDERED: KETO10TA PO (21:29)
[2018-02-11] MEDS ORDERED: DOCU-94 PO (21:29)
[2018-02-11] MEDS ORDERED: OPTIRAY 320 IV PRN (21:45)
--- NOTE | 2018-02-11 22:17 | DIAGNOSTIC IMAGING REPORT ---
CT ANGIOGRAM OF THE CHEST CLINICAL HISTORY: Atypical chest pain COMPARISON STUDY: Chest x-ray dated 02/10/2018 TECHNIQUE: Following the IV administration of 99 mL of Optiray-320, CT angiogram of the thorax was performed from the thoracic inlet to the lung bases utilizing the pulmonary embolus protocol. Images are reviewed in the axial, sagittal, and coronal planes. IV contrast was administered without complication. MIP imaging was performed. A dose lowering technique was utilized adhering to the principles of ALARA. CT DOSE: 711.70 mGy.cm FINDINGS: No pathologically enlarged axillary mediastinal or hilar lymph nodes were visualized. There was no evidence of thoracic aortic dilatation. There were no pulmonary artery filling defects to indicate acute pulmonary embolism. No pleural effusions are visualized. There was no evidence of focal pulmonary consolidation. IMPRESSION: 1. No evidence of acute pulmonary embolism 2. No evidence of focal pulmonary consolidation 3. No evidence of pathologic adenopathy Electronically signed by: Daniel Eden M.D. 02/11/2018 10:16 PM Dictated Date/Time: 02/11/2018 10:12 PM
[2018-02-11] MEDS ORDERED: HYDR-3983 PO (23:14)
[2018-02-11] MEDS ORDERED: HYDROCODONE/ACETAMINOPHEN 7.5/325MG TAB PO STA (23:15)
[2018-02-11] MEDS ORDERED: EMPTY 8 DRAM VIAL ONE (23:24)
[2018-02-11 23:37] VITALS: BP 180/82; PULSE 60; O2SAT 95
== END 2018-02-11 23:39 | disposition home or self-care (01) ==
LOC: C.EDB 19:37 → C.EDA 23:39
DX: M54.9 Dorsalgia, unspecified (principal); F41.9 Anxiety disorder, unspecified; Z88.8 Allergy status to other drugs, medicaments and biological substances